=== PATIENT | female | born 1985 | race African-American/Black ===

== ENCOUNTER 2019-03-02 15:17 | Inpatient (IN) | payer MEDICAID, OTHER ==
[~2019-03-02] VITALS: Ht 162.6 cm; Wt 110.0 kg
[2019-03-02] MEDS: oxcarbazepine 150mg tablet PO SCH (04:10)
[~2019-03-02 15:17] MED LIST: OXCA600T5 PO; QUET-1 PO; QUET400T PO
[2019-03-02] MEDS ORDERED: acetaminophen 325mg tablet PO PRN (19:50)
[2019-03-02] MEDS ORDERED: mag hydrox/Alum hydrox/simeth 30ml oral suspension PO PRN (19:50)
[2019-03-02] MEDS ORDERED: magnesium hydroxide 30ml (MOM) UD suspension PO PRN (19:50)
[2019-03-02] MEDS ORDERED: hydrOXYzine 25 MG tablet PO PRN (19:55)
[2019-03-02] MEDS ORDERED: loperamide 2mg capsule PO PRN (19:55)
[2019-03-02 19:57] VITALS: BP 151/90
[2019-03-02] MEDS ORDERED: tuberculin, purif. prot. deriv. 5 units/0.1ml ID ONE (20:00)
[2019-03-02] MEDS ORDERED: quetiapine 100mg tablet PO SCH (21:00)
[2019-03-02] MEDS: quetiapine 100mg tablet PO SCH (21:52)
[2019-03-02] MEDS ORDERED: QUEtiapine 25mg tablet PO PRN (22:05)
[2019-03-02] MEDS ORDERED: quetiapine 100mg tablet PO PRN (22:11)
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
[2019-03-03] MEDS ORDERED: QUET-1 PO (03:40)
[2019-03-03] MEDS ORDERED: quetiapine 100mg tablet PO PRN (03:45)
[2019-03-03 07:43] VITALS: BP 110/77
[2019-03-03] MEDS: oxcarbazepine 150mg tablet PO SCH ×2 (08:21→21:44)
[2019-03-03] MEDS: quetiapine 100mg tablet PO SCH ×2 (09:00→21:00)
[2019-03-03 12:30] LABS: CHOL/HDL RATIO 2.3 (0.00-4.99); CHOLESTEROL 126 MG/DL (0-200); HDL CHOLESTEROL 55 MG/DL (35-60); LDL CHOLESTEROL 37 MG/DL (50-100); TRIGLYCERIDES 159 MG/DL (20-135)
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
[2019-03-03 20:00] VITALS: BP 132/86
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
[2019-03-04] MEDS: acetaminophen 325mg tablet PO PRN (07:55)
[2019-03-04] MEDS: oxcarbazepine 150mg tablet PO SCH ×2 (07:56→20:19)
[2019-03-04 08:00] VITALS: BP 93/73
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
[2019-03-04 19:58] VITALS: BP 107/74
[2019-03-04] MEDS: quetiapine 100mg tablet PO SCH (20:17)
--- NOTE | 2019-03-04 20:42 | NUR ---
DISCHARGE PLANNING: Pt's mother is taking a bus from [place] to be w/pt. She should be arriving tomorrow evening, according to pt. Special visiting hours may need to be arranged. Dr. Yoon said she will be D/C tomorrow. They may be an issue w/her prescriptions as their insurance is out of state and pt is not sure she has enough of her own medication to last a bus trip back home. Dr. Yoon was thinking to maybe call them into [email or web address]. Callie Romero, ACSW
[2019-03-04] MEDS ORDERED: quetiapine 100mg tablet PO SCH (21:00)
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
[2019-03-05 08:00] VITALS: BP 112/81
[2019-03-05] MEDS: oxcarbazepine 150mg tablet PO SCH ×2 (08:10→20:22)
[2019-03-05] MEDS: acetaminophen 325mg tablet PO PRN (08:11)
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
[2019-03-05] MEDS: quetiapine 100mg tablet PO SCH (20:22)
[2019-03-05 20:36] VITALS: BP 130/86
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
[2019-03-06] MEDS: oxcarbazepine 150mg tablet PO SCH (07:32)
[2019-03-06 08:41] VITALS: BP 129/92
[2019-03-06] MEDS ORDERED: OXCA600T5 PO (10:42)
[2019-03-06] MEDS ORDERED: QUET-1 PO (10:42)
[2019-03-06] MEDS ORDERED: QUET400T12 PO (10:42)
--- NOTE | 2019-03-06 11:11 | NUR ---
Discharge note: Client was discharged from unit at 1107 hours this am accompanied by her Mother.Eventual discharge destination is [place] via airline travel. Valuable were given to client, Client to follow up with her provider when she reaches her home destination.Prescriptions were give with verbal instructions, Currently Addendum: 03/06/19 at 1118 by Kunal Jones RN continuation of discharge note: Currently, mood has improved and she denies current SI,HI. [place] has improved since admission and is future oriented. Affect is bright.
== END 2019-03-06 11:07 | disposition home or self-care (01) | DRG 753 ==
LOC: ADULT MH 17:08
PROVIDERS: ADMIT Psychiatry & Neurology Psychiatry; ATTEND Psychiatry & Neurology Psychiatry
DX: F39 Unspecified mood [affective] disorder (principal)
CPT/HCPCS: 36415; 80061; 83036; 87081